=== PATIENT | male | born 1970 | race Caucasian/White ===

== ENCOUNTER 2021-03-18 18:45 | Day surgery (SDC) | payer OTHER ==
[2021-03-18] MEDS ORDERED: SODIUM CHLORIDE 0.9% 1,000 ML IV STA (20:19)
[2021-03-18] MEDS ORDERED: NITROGLYCERIN SL 0.4 MG TABLET SL STA (20:20)
[2021-03-18] MEDS ORDERED: GLUCAGON 1 MG in DEXTROSE 5% 45 ML IV STA (20:20)
--- NOTE | 2021-03-18 20:35 | ED Physician Documentation ---
History of Present Illness - Stated complaint Stated Complaint: FOOD STUCK IN THROAT - Chief complaint Chief Complaint: Heent - History obtained from History obtained from: Patient - Additonal information Additional information: Patient comes emergency department chief complaint of esophageal food impaction for about the last 3 hours. Patient states he was eating steak when it seemed to get stuck just below his neck. Patient has not been able to swallow anything, including saliva, and keep it down since. He states this is happened to him before and that he had an esophageal dilatation about 15 years ago in [place]. Patient also has a history of hiatal hernia and acid reflux He denies any abdominal pain or nausea. No difficulty breathing. Patient states he has not been ill with anything else recently and is otherwise fairly healthy. Review of Systems Ten Systems: 10 systems reviewed and negative Constitutional: reports: Reviewed and negative Eyes: reports: Reviewed and negative Ears: reports: Reviewed and negative Nose: reports: Reviewed and negative Throat: reports: Reviewed and negative Cardiac: reports: Reviewed and negative Respiratory: reports: Reviewed and negative GI: reports: Other (Obstruction, esophagus) : reports: Reviewed and negative Skin: reports: Reviewed and negative Musculoskeletal: reports: Reviewed and negative Neurologic: reports: Reviewed and negative Psychiatric: reports: Reviewed and negative Endocrine: reports: Reviewed and negative Immunocompromised: reports: Reviewed and negative PD PAST MEDICAL HISTORY - Past Medical History Past Medical History: Yes Respiratory: Asthma GI: Other Other Past Medical History: narrow espohagus - Past Surgical History Past Surgical History: Yes General: EGD Ortho: Spine surgery - Present Medications Home Medications: Ambulatory Orders Medication Instructions Recorded Confirmed Diclofenac Sodium Dr [Voltaren] 75 mg PO DAILY 03/18/21 03/18/21 Gabapentin [Neurontin] 600 mg PO BID 03/18/21 03/18/21 oxyCODONE/ACET 5/325 [Percocet 5 1 tab PO BID 03/18/21 03/18/21 mg/325 mg] - Allergies Allergies/Adverse Reactions: Allergies Allergy/AdvReac Type Severity Reaction Status Date / Time Penicillins Allergy Rash Verified 03/18/21 19:03 - Social History Does the pt smoke?: No Smoking Status: Never smoker Does the pt drink ETOH?: Yes - Immunizations Immunizations are current?: Yes PD ED PE NORMAL - Vitals Vital signs reviewed: Yes - General General: Alert and oriented X 3, No acute distress, Well developed/nourished, Other (Patient appears moderately uncomfortable intermittently but otherwise no apparent distress. He is noted to be spitting out saliva) - HEENT HEENT: Atraumatic, PERRL, EOMI, Moist mucous membranes - Neck Neck: Supple, no meningeal sign, Other (No mass.) - Cardiac Cardiac: RRR, No murmur, Strong equal pulses - Respiratory Respiratory: No respiratory distress, Clear bilaterally - Abdomen Abdomen: Soft, Non tender, Non distended - Derm Derm: Normal color, Warm and dry, No rash - Extremities Extremities: No deformity, No edema - Neuro Neuro: Alert and oriented X 3, systems technologist 2-12 intact, Normal speech, Other (Grossly intact.) - Psych Psych: Normal mood, Normal affect Results - Vitals Vitals: Vital Signs - 24 hr 03/18/21 03/18/21 03/18/21 19:03 19:43 19:51 Temperature 36.9 C 36.7 C 36.7 C Heart Rate 90 85 78 Respiratory 18 18 18 Rate Blood Pressure 180/90 H 149/102 H 165/96 H O2 Saturation 97 96 96 03/18/21 20:43 Temperature Heart Rate 84 Respiratory 17 Rate Blood Pressure 149/99 H O2 Saturation 96 Oxygen O2 Source Room air - Labs Labs: Laboratory Tests 03/18/21 03/18/21 03/18/21 20:38 20:38 20:38 WBC 6.1 RBC 5.03 Hgb 14.7 Hct 44.5 MCV 88.5 MCH 29.2 MCHC 33.0 RDW 12.4 Plt Count 198 MPV 8.8 Neut # (Auto) 3.1 Lymph # (Auto) 2.1 [place] # (Auto) 0.6 Eos # (Auto) 0.3 Baso # (Auto) 0.0 Absolute Nucleated RBC 0.00 Nucleated RBC % 0.0 PT 13.4 H INR 1.2 Sodium 138 Potassium 3.4 L Chloride 103 Carbon Dioxide 27 Anion Gap 8.0 BUN 10 Creatinine 0.8 Estimated GFR (MDRD) 102 Glucose 97 Calcium 9.0 Total Bilirubin 0.8 AST 21 ALT 31 Alkaline Phosphatase 83 Total Protein 7.2 Albumin 4.5 Globulin 2.7 Albumin/Globulin Ratio 1.7 Lipase 21 L PD MEDICAL DECISION MAKING - ED course Complexity details: reviewed results, re-evaluated patient, considered differential, d/w patient ED course: The patient was treated with IV glucagon, and nitroglycerin to try to clear the impaction. I spoke with Dr. Hull, who is on-call for surgery, and he stated that if the patient's impaction does not clear by the time he is done with his current OR case, he will come and see the patient in the ED. Departure - Departure Disposition: ED Transfer to [facility] Clinical Impression: Foreign body in esophagus Qualifiers: Encounter type: initial encounter Qualified Code(s): T18.108A - Unspecified foreign body in esophagus causing other injury, initial encounter Condition: Serious
[2021-03-18 20:43] LABS: BASOPHILS % (AUTO) 0.5 %; EOSINOPHILS # (AUTO) 0.3 10^3/uL (0.0-0.7); EOSINOPHILS % (AUTO) 4.2 %; HCT - HEMATOCRIT 44.5 % (42.0-52.0); HGB - HEMOGLOBIN 14.7 g/dL (14.0-18.0); LYMPHOCYTES # (AUTO) 2.1 10^3/uL (1.5-3.5); MEAN CORPUSCULAR HEMOGLOBIN 29.2 pg (27.0-31.0); MEAN CORPUSCULAR VOLUME 88.5 fL (80.0-94.0); MEAN PLATELET VOLUME 8.8 fL (7.4-11.4); MONOCYTES # (AUTO) 0.6 10^3/uL (0.0-1.0); NEUTROPHILS # (AUTO) 3.1 10^3/uL (1.5-6.6); NEUTROPHILS % (AUTO) 51.1 %; PLT - PLATELET COUNT 198 10^3/uL (130-450); RED BLOOD COUNT 5.03 10^6/uL (4.70-6.10); RED CELL DISTRIBUTION WIDTH 12.4 % (12.0-15.0); WHITE BLOOD COUNT 6.1 x10^3/uL (4.8-10.8)
[2021-03-18 20:50] LABS: INR 1.2 (0.8-1.2); PT - PROTHROMBIN TIME 13.4 secs (9.9-12.6)
[2021-03-18 20:56] LABS: ALBUMIN 4.5 g/dL (3.2-5.5); ALBUMIN/GLOBULIN RATIO 1.7 (1.0-2.2); BILIRUBIN,TOTAL 0.8 mg/dL (0.2-1.0); CREATININE 0.8 mg/dL (0.6-1.2); POTASSIUM 3.4 mmol/L (3.5-5.0); TOTAL PROTEIN 7.2 g/dL (6.7-8.2)
--- NOTE | 2021-03-18 21:54 | ANESTHESIA ---
Pre-Anesthesia VS, & Labs - Diagnosis food bolus stuck in esphagus - Procedure EGD and removal of food bolus Vital Signs: Temp Pulse Resp BP Pulse Ox 36.7 C 84 17 149/99 H 96 03/18/21 19:51 03/18/21 20:43 03/18/21 20:43 03/18/21 20:43 03/18/21 20:43 Height: 6 ft 5 in Weight (kg): 119.6 kg Body Mass Index: 31.2 BMI Classification: Obese - NPO Other (1700) - Lab Results Current Lab Results: Laboratory Tests 03/18/21 20:38: Sodium 138, Potassium 3.4 L, Chloride 103, Carbon Dioxide 27, Anion Gap 8.0, BUN 10, Creatinine 0.8, Estimated GFR (MDRD) 102, Glucose 97, Calcium 9.0, Total Bilirubin 0.8, AST 21, ALT 31, Alkaline Phosphatase 83, Total Protein 7.2, Albumin 4.5, Globulin 2.7, Albumin/Globulin Ratio 1.7, Lipase 21 L 03/18/21 20:38: PT 13.4 H, INR 1.2 03/18/21 20:38: WBC 6.1, RBC 5.03, Hgb 14.7, Hct 44.5, MCV 88.5, MCH 29.2, MCHC 33.0, RDW 12.4, Plt Count 198, MPV 8.8, Neut # (Auto) 3.1, Lymph # (Auto) 2.1, [place] # (Auto) 0.6, Eos # (Auto) 0.3, Baso # (Auto) 0.0, Absolute Nucleated RBC 0.00, Nucleated RBC % 0.0 Fish Bones: 03/18/21 20:38 03/18/21 20:38 Home Medications and Allergies Home Medications: Ambulatory Orders Diclofenac Sodium Dr [Voltaren] 75 mg PO DAILY 03/18/21 Gabapentin [Neurontin] 600 mg PO BID 03/18/21 oxyCODONE/ACET 5/325 [Percocet 5 mg/325 mg] 1 tab PO BID 03/18/[address] [Voltaren] 75 mg PO DAILY 03/18/21 Gabapentin [Neurontin] 600 mg PO BID 03/18/21 oxyCODONE/ACET 5/325 [Percocet 5 mg/325 mg] 1 tab PO BID 03/18/21 Allergies/Adverse Reactions: Allergies Allergy/AdvReac Type Severity Reaction Status Date / Time Penicillins Allergy Rash Verified 03/18/21 19:03 Anes History & Medical History - Anesthetic History Anesthesia Complications: reports: No previous complications - Medical History Cardiovascular: reports: None Pulmonary: reports: Asthma Gastrointestinal: reports: Other Neuro: reports: Other (chronic back and neck pain) Smoking Status: Never smoker History of Cancer?: No Other Past Medical History: narrow espohagus - Surgical History General: reports: EGD Urologic: reports: Testicular surgery Orthopedic: reports: Spine surgery Exam General: Alert Dental: WNL Mouth Opening: Greater than 4 Fingerbreadths Mallampati classification: II Thyromental Distance: greater than 6 cm Respiratory: Lungs clear Cardiovascular: Regular rate Plan Anesthesia Type: General Consent for Procedure(s) Verified and Reviewed: Yes Code Status: Attempt Resuscitation ASA classification: 2-Mild systemic disease Is this case an emergency?: Yes
[2021-03-18] MEDS ORDERED: NALOXONE 0.4 MG/ML VIAL IVP PRN (21:55)
[2021-03-18] MEDS ORDERED: ONDANSETRON 4 MG/2 ML VIAL IVP PRN (21:55)
[2021-03-18] MEDS ORDERED: fentaNYL 100 MCG/2 ML VIAL IVP PRN (21:55)
[2021-03-18] MEDS ORDERED: ePHEDrine 50 MG/ML VIAL IVP PRN (21:55)
[2021-03-18] MEDS ORDERED: ATROPINE ABBOJECT 1 MG/10 ML SYRINGE IVP PRN (21:55)
[2021-03-18] MEDS ORDERED: MORPHINE 2 MG/ML CARPUJECT IVP PRN (21:55)
[2021-03-18] MEDS ORDERED: METOCLOPRAMIDE 10 MG/2 ML VIAL IVP PRN (21:55)
[2021-03-18] MEDS ORDERED: HYDROmorphone 0.5 MG/0.5 ML SYRINGE IVP PRN (21:55)
[2021-03-18] MEDS ORDERED: fentaNYL 100 MCG/2 ML VIAL ONE (21:59)
[2021-03-18] MEDS ORDERED: LACTATED RINGERS 1,000 ML IV SCH (22:00)
--- NOTE | 2021-03-18 22:00 | SURGERY HX AND PHYSICAL(T) ---
Surgical History & Physical - Chief Complaint/HPI Chief Complaint: Retained food bolus/impacted food bolus History of Present Illness: 50-year-old male presenting for impacted food bolus. Eating steak this evening patient reports after first bite subjective feeling of inability to swallow. Patient reports this having had happened in the past. Required endoscopic retrieval. No history of external beam radiation. Patient has history of cervical spine and disc disease with chronic pain. No significant family history. Notable past surgical history to include none. Patient denies change in bowel function, denies bleeding per rectum, and also however report reflux associated symptoms. Patient does use tobacco and continues to vape. This is and continues to be a challenge. Patient has a history of alcohol use but denies any associated abuse. No history of heart attack or stroke. Patient takes no systemic anticoagulation. Endoscopic history includes remote removal of impacted food bolus and colonoscopy. - PMH/PSH/Social Hx Does the pt have a hx of MRSA?: No Neurological History: Other (chronic back and neck pain) Cardiovascular: None Respiratory: Asthma Gastrointestinal: Other PMH Other: narrow espohagus General: EGD Orthopedic: Spine surgery Urologic: Testicular surgery Smoking Status: Never smoker Does the pt drink ETOH?: Yes Frequency: Occasional - Home Meds and Allergies Home Medications: Diclofenac Sodium Dr [Voltaren] 75 mg PO DAILY 03/18/21 Gabapentin [Neurontin] 600 mg PO BID 03/18/21 oxyCODONE/ACET 5/325 [Percocet 5 mg/325 mg] 1 tab PO BID 03/18/21 Allergies/Adverse Reactions: Allergies Allergy/AdvReac Type Severity Reaction Status Date / Time Penicillins Allergy Rash Verified 03/18/21 19:03 - Review of Systems Gastrointestinal: Nausea, Difficulty swallowing - Vital Signs Heart Rate: 84 Blood Pressure: 149/99 Temperature: 36.7 C Respiratory Rate: 17 O2 Saturation: 96 Weight (kg): 119.6 kg Height: 1.96 m - Physical Exam Comments/Other: General Appearance: positive: No acute distress Eyes Bilateral: positive: Normal inspection ENT: positive: ENT inspection nml Neck: positive: Nml inspection Respiratory: positive: Chest non-tender, No respiratory distress, Breath sounds nml. negative: Wheezes, Rales, Rhonchi Cardiovascular: positive: Regular rate & rhythm Abdomen: positive: No distention, Other. negative: Guarding, Rebound Extremities: positive: Non-tender, Full ROM, Nml appearance Neurologic/Psychiatric: positive: Oriented x3, CN's nml (2-12) - Patient Review Patient Review: Problems were reviewed with the patient during this visit. Medications were reviewed with the patient during this visit. Allergies were reviewed this patient during this visit. Pertinent Tests Reviewed: All pertitent test for this patient were reviewed. - Assessment & Plan Assessment and Plan: 50-year-old male with impacted food bolus. Recurrent. Unable to pass in the emergency room. We will proceed with upper endoscopy. Likely proceed while intubated. Risk of aspiration amongst others discussed. Patient to continue with work-up as listed elsewhere. Upper GI study with small bowel follow-through also ordered. We will proceed with esophagogastroduodenoscopy today however to acutely address the patient impacted food bolus. In addition to removal of the food bolus we will proceed with diagnostics as per below. This will include pathology. This to include random biopsies of the duodenum, stomach, GE junction as well as other necessary biopsies to rule out amongst other celiac sprue, gastritis/gastropathy, reflux as well as [place]'s, together with H. pylori. Risk and benefits discussed, the former include amongst others bleeding, infection, perforation, need for further procedures/surgery, missed lesions, as well as anesthetic complications of heart attack, stroke, pulmonary embolism and . Before any definitive interventions will proceed with this first. Please note that voice recognition software was used to transcribe this note and inadvertent errors might persist in spite of review and editing. I am obliged to you for your attention. I am thankful to you for allowing me to participate with you in this care of this patient.
[2021-03-18] MEDS ORDERED: SUGAMMADEX 200 MG/2 ML VIAL IVP ONE (22:22)
[2021-03-18] MEDS ORDERED: LACTATED RINGERS 1,000 ML IV ONE (22:41)
[2021-03-18] MEDS ORDERED: PROPOFOL 200 MG/20 ML VIAL IVP ONE (22:43)
[2021-03-18 22:58] VITALS: BP 126/84
--- NOTE | 2021-03-18 22:59 | ANESTHESIA POST OP EVALUATION ---
Anesthesia Post Eval - Post Anesthesia Eval Vitals: Last Vital Signs Temp 37.1 C 03/18/21 22:56 Pulse 78 03/18/21 22:56 Resp 20 03/18/21 22:56 BP 126/84 H 03/18/21 22:56 Pulse Ox 97 03/18/21 22:56 CV Function Including HR & BP: Stable Pain Control: Satisfactory Nausea & Vomiting: Negative Mental Status: Baseline Respiratory Status: Airway Patent Hydration Status: Satisfactory Anesthesia Complications: None
== END 2021-03-18 21:31 | disposition home or self-care (01) ==
LOC: ED 18:45 → SDS 21:30
PROVIDERS: ATTEND Surgery
PROC: 0DB78ZX Excision of Stomach, Pylorus, Via Natural or Artificial Opening Endoscopic, Diagnostic (ICD-10-PCS; 2021-03-18)
PROC: 0DB28ZX Excision of Middle Esophagus, Via Natural or Artificial Opening Endoscopic, Diagnostic (ICD-10-PCS; 2021-03-18)
PROC: 0DB48ZX Excision of Esophagogastric Junction, Via Natural or Artificial Opening Endoscopic, Diagnostic (ICD-10-PCS; 2021-03-18)
PROC: 0DC18ZZ Extirpation of Matter from Upper Esophagus, Via Natural or Artificial Opening Endoscopic (ICD-10-PCS; 2021-03-18)
PROC: 0DB98ZX Excision of Duodenum, Via Natural or Artificial Opening Endoscopic, Diagnostic (ICD-10-PCS; principal; 2021-03-18 22:00)
DX: T18.128A Food in esophagus causing other injury, initial encounter (principal); F17.290 Nicotine dependence, other tobacco product, uncomplicated; K29.60 Other gastritis without bleeding; B96.81 Helicobacter pylori [H. pylori] as the cause of diseases classified elsewhere; X58.XXXA Exposure to other specified factors, initial encounter; E66.9 Obesity, unspecified; Z68.31 Body mass index [BMI] 31.0-31.9, adult
CPT/HCPCS: 36415; 43239; 43247; 80053; 83690; 85025; 85610; 96365; 99283; 99285; A9270; J7120; 88305; 88312

== ENCOUNTER 2022-08-10 17:00 | Outpatient (CLI) | payer OTHER ==
--- NOTE | 2022-08-11 12:52 | XRAY Report ---
PROCEDURE: Knee 3 View RT INDICATIONS: PAIN IN RIGHT KNEE TECHNIQUE: 3 views of the right knee(s) were acquired. COMPARISON: None. FINDINGS: Bones: No fractures or dislocations. No suspicious bony lesions. There are small intercondylar ost eophytes. There is mild medial femorotibial compartment narrowing. Soft tissues: No joint effusion. There is trace chondrocalcinosis at the femorotibial joint. IMPRESSION: 1. Mild osteoarthritis. 2. Mild chondrocalcinosis. This finding can be associated with osteoarthritis or a deposition diseas e such as CPPD. Reviewed by: Britney Ayoub MD on 08/11/2022 12:51 PM PST Approved by: Britney Ayoub MD on 08/11/2022 12:51 PM PST Station ID: [id number]
== END 2022-08-10 23:59 | disposition home or self-care (01) ==
LOC: DI.S 17:00
PROVIDERS: ATTEND Registered Nurse
DX: M17.11 Unilateral primary osteoarthritis, right knee (principal); M11.261 Other chondrocalcinosis, right knee

== ENCOUNTER 2024-02-15 15:27 | Emergency (ER) | payer OTHER ==
--- NOTE | 2024-02-15 16:07 | XRAY Report ---
PROCEDURE: Knee 4+V RT INDICATIONS: Trauma/pain TECHNIQUE: 4 views of the knee(s) were acquired. COMPARISON: 08/10/2022. FINDINGS: Bones: No fractures or dislocations. Mild medial femoral tibial compartment and patellofemoral des rtment osteoarthritis is seen. No significant patellar subluxation. No suspicious bony lesions. Soft tissues: Small knee joint effusion. No suspicious soft tissue calcifications or masses. IMPRESSION: No acute bony abnormality. Mild medial femoral tibial compartment and patellofemoral compartment oste oarthritis. Small joint effusion. Reviewed by: Joe Mckeon MD on 02/15/2024 4:06 PM PDT Approved by: Joe Mckeon MD on 02/15/2024 4:06 PM PDT Station ID: [id number]
--- NOTE | 2024-02-15 19:14 | ED Physician Documentation ---
PD HPI LOWER EXT INJURY - Stated complaint Stated Complaint: R KNEE PX - Chief complaint Chief Complaint: Ext Problem - History obtained from History obtained from: Patient - Additional information Additional information: Patient presents for atraumatic right knee pain. Patient reports remote history of knee injury and reports occasional flareups of pain, however they have never lasted this long. Also reports lower extremity swelling and erythema. Review of Systems Constitutional: denies: Fever, Chills Cardiac: denies: Chest pain / pressure, Palpitations Respiratory: denies: Dyspnea, Cough, Wheezing GI: denies: Abdominal Pain, Nausea, Vomiting Musculoskeletal: reports: Joint pain, Extremity swelling, Joint swelling. denies: Neck pain, Back pain, Extremity pain Neurologic: denies: Generalized weakness, Focal weakness, Numbness PD PAST MEDICAL HISTORY - Past Medical History Past Medical History: Yes Cardiovascular: Hypertension Respiratory: Asthma Neuro: Other Endocrine/Autoimmune: None GI: GERD, Hiatal hernia, Other : None Psych: None Musculoskeletal: Rheumatoid arthritis Derm: None - Past Surgical History Past Surgical History: Yes General: EGD Ortho: Spine surgery - Present Medications Home Medications: Ambulatory Orders Medication Instructions Recorded Confirmed lisinopriL [Zestril] 5 mg PO DAILY 02/15/24 02/15/24 traMADol [Ultram] 50 mg PO Q6H PRN #10 tablet 02/15/24 - Allergies Allergies/Adverse Reactions: Allergies Allergy/AdvReac Type Severity Reaction Status Date / Time bee venom protein (honey bee) Allergy Anaphylaxis Verified 02/15/24 15:31 Penicillins Allergy Rash Verified 02/15/24 15:31 - Social History Does the pt smoke?: No Smoking Status: Never smoker Does the pt drink ETOH?: Yes Does the pt have substance abuse?: No - Immunizations Immunizations are current?: Yes - POLST Patient has POLST: No PD ED PE NORMAL - Vitals Vital signs reviewed: Yes - General General: Alert and oriented X 3, No acute distress, Well developed/nourished - Derm Derm: Normal color, Warm and dry, No rash - Extremities Extremities: No deformity, No tenderness to palpate, Normal ROM s pain, Other (Trace pitting edema from knee down on right lower extremity) Results - Vitals Vitals: Vital Signs - 24 hr 02/15/24 02/15/24 15:31 21:32 Temperature 36.3 C L 36.5 C Heart Rate 90 88 Respiratory 16 16 Rate Blood Pressure 170/95 H 140/50 H O2 Saturation 96 98 Oxygen O2 Source Room air - Labs Labs: Laboratory Tests 02/15/24 02/15/24 19:19 19:19 WBC 6.1 RBC 5.15 Hgb 15.2 Hct 45.8 MCV 88.9 MCH 29.5 MCHC 33.2 RDW 12.5 Plt Count 226 MPV 8.9 Neut # (Auto) 3.4 Lymph # (Auto) 2.0 [place] # (Auto) 0.4 Eos # (Auto) 0.2 Baso # (Auto) 0.0 Absolute Nucleated RBC 0.00 Nucleated RBC % 0.0 Sodium 137 Potassium 3.6 Chloride 103 Carbon Dioxide 31 Anion Gap 3.0 L BUN 10 Creatinine 0.9 Estimated GFR (MDRD) 88 L Glucose 93 Calcium 9.3 Total Bilirubin 0.6 AST 15 ALT 23 Alkaline Phosphatase 88 Total Protein 7.3 Albumin 4.6 Globulin 2.7 Albumin/Globulin Ratio 1.7 PD Medical Decision Making - ED course Complexity details: reviewed results, re-evaluated patient, considered differential, d/w patient ED course: Atraumatic lower extremity pain and swelling that is unilateral. Patient does seem to have some pitting edema on the right-hand side. The knee itself is not overly swollen, it is not warm to touch, he has full range of motion and is able to ambulate. I have no suspicion for a septic joint at this time based on the current exam presentation. X-ray shows some compartmental arthritis and effusion. Ultrasound negative for DVT. Patient counseled to take Tylenol and ibuprofen and use Voltaren gel for comfort. [place] wrap ordered and advised to wear for comfort as well. If conservative measures do not improve pain a very short course of pain medication sent to pharmacy of choice. Recommended orthopedic follow-up, especially since patient has had longstanding intermittent pain in his leg. Departure - Departure Disposition: 01 Home, Self Care Clinical Impression: Knee pain Condition: Stable Instructions: ED Knee Pain [facility] Follow-Up: Migel Osorio MD [Provider Admit Priv/Credential] - Prescriptions: traMADol [Ultram] 50 mg PO Q6H PRN #10 tablet PRN Reason: Pain >8 Comments: Your laboratory work, x-ray, and ultrasound imaging was negative for concerning findings. You do have some arthritic changes of your right knee which may be contributing to your pain. First line of therapy is Tylenol and ibuprofen as well as Voltaren gel. These can all be purchased [id number] and taken for pain. I also recommend wearing an [place] wrap bandage or brace to your knee to help decrease swelling. Elevate your leg when at rest to decrease swelling. I recommend following up with orthopedics, especially if your pain does not improve with conservative therapy. A short course of pain medications has been sent to your pharmacy. rx sent to [facility] Forms: PCP List Discharge Date/Time: 02/15/24 21:32
[2024-02-15 19:23] LABS: BASOPHILS % (AUTO) 0.3 %; EOSINOPHILS # (AUTO) 0.2 10^3/uL (0.0-0.7); EOSINOPHILS % (AUTO) 3.6 %; HCT - HEMATOCRIT 45.8 % (42.0-52.0); HGB - HEMOGLOBIN 15.2 g/dL (14.0-18.0); LYMPHOCYTES % (AUTO) 32.2 %; MEAN CORPUSCULAR HEMOGLOBIN 29.5 pg (27.0-31.0); MEAN CORPUSCULAR HGB CONC 33.2 g/dL (32.0-36.0); MEAN CORPUSCULAR VOLUME 88.9 fL (80.0-94.0); MEAN PLATELET VOLUME 8.9 fL (7.4-11.4); MONOCYTES # (AUTO) 0.4 10^3/uL (0.0-1.0); MONOCYTES % (AUTO) 7.1 %; NEUTROPHILS # (AUTO) 3.4 10^3/uL (1.5-6.6); NEUTROPHILS % (AUTO) 56.6 %; PLT - PLATELET COUNT 226 10^3/uL (130-450); RED BLOOD COUNT 5.15 10^6/uL (4.70-6.10); RED CELL DISTRIBUTION WIDTH 12.5 % (12.0-15.0); WHITE BLOOD COUNT 6.1 x10^3/uL (4.8-10.8)
[2024-02-15] MEDS: oxyCODONE 5 MG TABLET PO STA (19:34)
[2024-02-15 19:41] LABS: ALBUMIN 4.6 g/dL (3.2-5.5); ALBUMIN/GLOBULIN RATIO 1.7 (1.0-2.2); BILIRUBIN,TOTAL 0.6 mg/dL (0.2-1.0); CALCIUM 9.3 mg/dL (8.5-10.3); CREATININE 0.9 mg/dL (0.6-1.3); POTASSIUM 3.6 mmol/L (3.5-4.5); TOTAL PROTEIN 7.3 g/dL (6.4-8.9)
[2024-02-15 21:42] VITALS: BP 140/50; O2SAT 98
--- NOTE | 2024-02-15 21:59 | Ultrasound Report ---
PROCEDURE: Duplex Ext Veins Right INDICATIONS: RLE SWELLING TECHNIQUE: Real-time imaging, as well as color and pulse Doppler interrogation, were performed of the lower extr emity deep veins from the inguinal ligament to the popliteal fossa. Attempted visualization of the ca lf veins was performed. COMPARISON: Right knee radiographs 02/15/2024. FINDINGS: The deep veins are normally compressible, and free of intraluminal thrombus. Color and pu lse Doppler demonstrate normal phasic intraluminal flow. There is normal augmentation response to di stal compression maneuver. Crawford cyst is seen in the popliteal fossa. There are multiple hypoechoic fluid collections around the knee, possible joint effusion IMPRESSION: No deep venous thrombosis of the visualized lower extremity. Reviewed by: Asia Witt MD, PhD on 02/15/2024 9:58 PM PDT Approved by: Asia Witt MD, PhD on 02/15/2024 9:58 PM PDT Station ID: [id number]
== END 2024-02-15 21:32 | disposition home or self-care (01) ==
LOC: ED 15:27
DX: M25.561 Pain in right knee (principal); I10 Essential (primary) hypertension; J45.909 Unspecified asthma, uncomplicated; M06.9 Rheumatoid arthritis, unspecified
CPT/HCPCS: 36415; 73564; 80053; 85025; 93971; 99284; A9270